=== PATIENT | female | born 1950 | race Caucasian/White ===

== ENCOUNTER 2019-11-19 16:30 | Emergency (ER) | payer MEDICARE, MEDICAID ==
--- NOTE | 2019-11-19 17:54 | EDM.PDOC ---
ED HPI GENERAL MEDICAL PROBLEM - General Chief Complaint: Lower Extremity Injury/Pain Stated Complaint: Hip and Groin Pain Time Seen by Provider: 11/19/19 16:38 Source of Information: Reports: Patient History Limitations: Reports: No Limitations - History of Present Illness INITIAL COMMENTS - FREE TEXT/NARRATIVE: Pt. presents to ER with complaints of lower back pain with radiation into L groin area. Pt. states that she has had issues with occasional low back without radicular symptoms in the past. She went to see a chiropractor who adjusted her back and SI joint 2 days ago which helped with some discomfort. She states this AM the discomfort was worse and radiating into her L groin and down her L buttock. Denies any saddle anesthesia or incontinence. No fever or chills. Onset: Today Location: Reports: Back, Upper Extremity, Left Quality: Reports: Burning, Stabbing Improves with: Reports: Rest Worsens with: Reports: Movement Associated Symptoms: Denies: Fever/Chills Review of Systems - Review of Systems Review Of Systems: See Below Constitutional: Reports: No Symptoms Ears: Reports: No Symptoms Nose: Reports: No Symptoms Mouth/Throat: Reports: No Symptoms Respiratory: Reports: No Symptoms Cardiovascular: Reports: No Symptoms GI/Abdominal: Reports: No Symptoms Genitourinary: Reports: No Symptoms Musculoskeletal: Reports: Back Pain Skin: Reports: No Symptoms Neurological: Reports: No Symptoms Psychiatric: Reports: No Symptoms ED EXAM, GENERAL - Physical Exam Exam: See Below Exam Limited By: No Limitations General Appearance: Alert, WD/WN, No Apparent Distress Throat/Mouth: Normal Inspection, Normal Lips, Normal Teeth, Normal Voice, No Airway Compromise Back Exam: Decreased Range of Motion, Muscle Spasm, Paraspinal Tenderness, Vertebral Tenderness, Other (severe muscle spasm. Decreased ROM with flexion, extension, lateral bending and rotation. ) Neurological: Alert, Oriented, CN II-XII Intact, No Motor/Sensory Deficits, Abnormal Reflexes (Reflexes +2 R, +1 L) Departure - Departure Time of Disposition: 18:42 Disposition: Home, Self-Care 01 Clinical Impression: Right-sided low back pain with left-sided sciatica - Discharge Information Instructions: Acetaminophen; Hydrocodone tablets or capsules, Cyclobenzaprine tablets, Acute Back Pain, Adult Referrals: Altagracia Ruiz [employer] [Primary Care Provider] - Additional Instructions: Flexeril 10mg 1 three times daily as needed for spasms [place] 5/325mg 1 every 4-6 hours as needed for pain Physical therapy will be in contact with you. Follow-up in clinic as needed. - Problem List Review Problem List Initiated/Reviewed/Updated: Yes
== END 2019-11-19 17:00 | disposition home or self-care (01) ==
LOC: VM.ED 16:30 → SUPCPDRO 16:30 → VM.ED 17:00
DX: M54.42 Lumbago with sciatica, left side (principal)
CPT/HCPCS: 99283

== ENCOUNTER 2019-11-25 14:50 | Emergency (ER) | payer MEDICARE, MEDICAID ==
[2019-11-25] MEDS: HYDROmorphone 0.5 MG/0.5 ML Syringe IV ONE (15:06)
[2019-11-25 15:35] LABS: CHLORIDE,CL 100 mmol/L (98-107); SODIUM,NA 136 mmol/L (136-145)
[2019-11-25 15:37] LABS: ANION GAP 13.8 mmol/L (10-20)
--- NOTE | 2019-11-25 15:42 | EDM.PDOC ---
ED HPI GENERAL MEDICAL PROBLEM - General Chief Complaint: Lower Extremity Injury/Pain Stated Complaint: left hip pain fall Time Seen by Provider: 11/25/19 15:00 Source of Information: Reports: Patient History Limitations: Reports: No Limitations - History of Present Illness INITIAL COMMENTS - FREE TEXT/NARRATIVE: Patient comes emergency department today from home by ambulance with complaints of left hip pain. This patient today was ambulating when suddenly she felt a "pop" in her left hip and then she fell to the ground. She had no symptoms of weakness dizziness lightheadedness palpitations prior to the fall. She clearly had some popping sensation her left hip and fell to the ground. In the last 2 weeks she has been seen in the emergency department as well as the clinic for left hip pain. Today when she fell she did not hit her head. She has no head neck or back pain. There was no loss of consciousness. She was given Zofran and fentanyl prior to arrival. NO COVID Symptoms no COVID exposure. Left Hip Pain Score (Numeric/FACES): 8 - Related Data Allergies Allergy/AdvReac Type Severity Reaction Status Date / Time chlorpromazine Allergy Anaphylactic Verified 11/25/19 15:10 [From Thorazine] Shock Home Meds: Home Meds ARIPiprazole [Abilify] 5 mg PO DAILY 11/25/19 [History] Albuterol Sulfate [Proair Respiclick] 2 puff IH Q6H PRN 11/25/19 [History] Albuterol [Proair HFA] 2 puff INH Q6HR PRN 11/25/19 [History] Escitalopram Oxalate [Lexapro] 20 mg PO DAILY 11/25/19 [History] Fluticasone/Umeclidin/Vilanter [Trelegy Ellipta 100-62.5-25] 1 puff IH DAILY 11/25/19 [History] Loratadine [Claritin] 10 mg PO DAILY 11/25/19 [History] Losartan [Cozaar] 50 mg PO DAILY 11/25/19 [History] QUEtiapine Fumarate [Seroquel] 200 mg PO BEDTIME 11/25/19 [History] hydroCHLOROthiazide [Hydrochlorothiazide] 12.5 mg PO DAILY 11/25/19 [History] Past Medical History Cardiovascular History: Reports: Hypertension Respiratory History: Reports: COPD Other Respiratory History: centrilobular emphysema Psychiatric History: Reports: Bipolar Social & Family History - Tobacco Use Smoking Status *Q: Current Every Day Smoker Years of Tobacco use: 40 Packs/Tins Daily: 0.5 Review of Systems - Review of Systems Review Of Systems: Comprehensive ROS is negative, except as noted in HPI. ED EXAM, GENERAL - Physical Exam Exam: See Below Exam Limited By: No Limitations General Appearance: Alert, WD/WN, No Apparent Distress Ears: Normal External Exam Nose: Normal Inspection Throat/Mouth: Normal Inspection Head: Atraumatic Neck: Normal Inspection Respiratory/Chest: No Respiratory Distress, Lungs Clear, Normal Breath Sounds, Chest Non-Tender Cardiovascular: Normal Peripheral Pulses, Regular Rate, Rhythm, No Murmur Peripheral Pulses: 2+: Radial (L), Radial (R), Posterior Tibial (L), Posterior Tibial (R), Dorsalis Pedis (L), Dorsalis Pedis (R) GI/Abdominal: Normal Bowel Sounds, Soft (Female) Exam: Deferred Rectal (Female) Exam: Deferred Back Exam: Normal Inspection, Full Range of Motion. No: CVA Tenderness (L), CVA Tenderness (R), Paraspinal Tenderness, Vertebral Tenderness Extremities: No: Normal Inspection (Left Lower extremity is shortened and externally rotated with tenderness to the left hip region. ) Neurological: Alert, Oriented, CN II-XII Intact, Normal Cognition, No Motor/Sensory Deficits Psychiatric: Normal Affect, Normal Mood Skin Exam: Warm, Dry, Intact, Normal Color, No Rash Course - Vital Signs Last Recorded V/S: Last Vital Signs Temp 97.9 F 11/25/19 14:50 Pulse 72 11/25/19 14:50 Resp 18 11/25/19 14:50 BP 112/71 11/25/19 14:50 Pulse Ox 94 L 11/25/19 14:50 - Orders/Labs/Meds Orders: Active Orders 24 hr Category Date Time Status Chest 1V Frontal [CR] Stat Exams 11/25/19 16:02 Ordered Labs: Laboratory Tests 11/25/19 11/25/19 11/25/19 Range/Units 15:10 15:10 15:10 WBC 7.5 (4.0-10.0) x10^3/uL RBC 3.99 L (4.00-5.50) x10^6/uL Hgb 11.5 L (12.0-16.0) g/dL Hct 34.1 (33.0-47.0) % MCV 85.5 (78.0-93.0) fL MCH 28.8 (26.0-32.0) pg MCHC 33.7 (32.0-36.0) g/dL RDW Coeff of Sally 13.1 (10.0-15.0) % Plt Count 301 (130-400) x10^3/uL Neut % (Auto) 61.0 (50.0-80.0) % Lymph % (Auto) 23.6 L (25.0-50.0) % [place] % (Auto) 10.9 (2.0-11.0) % Eos % (Auto) 4.1 H (0.0-4.0) % Baso % (Auto) 0.4 (0.2-1.2) % PT 10.2 (9.5-12.3) SEC INR 0.9 L (2.0-3.5) APTT 43.2 H (25.6-32.8) SEC Sodium 136 (136-145) mmol/L Potassium 3.8 (3.5-5.1) mmol/L Chloride 100 (98-107) mmol/L Carbon Dioxide 26 (21-32) mmol/L Anion Gap 13.8 (10-20) mmol/L BUN 40 H (7-18) mg/dL Creatinine 1.4 H (0.55-1.02) mg/dL Est Cr Clr Drug Dosing TNP Estimated GFR (MDRD) 37 Glucose 105 (74-106) mg/dL Calcium 8.9 (8.5-10.1) mg/dL Corrected Calcium 9.22 (8.5-10.1) mg/dL Total Bilirubin 0.6 (0.2-1.0) mg/dL AST 14 L (15-37) U/L ALT 18 (14-59) U/L Alkaline Phosphatase 65 (46-116) U/L Total Protein 7.5 (6.4-8.2) g/dL Albumin 3.6 (3.4-5.0) g/dL Globulin 3.9 Albumin/Globulin Ratio 0.92 Meds: Medications Discontinued Medications Generic Name Dose Route Start Last Admin Trade Name Freq PRN Reason Stop Dose Admin Hydromorphone HCl 0.5 mg 11/25/19 15:00 11/25/19 15:06 Dilaudid IV 11/25/19 15:01 0.5 mg ONETIME ONE Administration Ondansetron HCl 4 mg 11/25/19 15:00 Zofran IV 11/25/19 15:01 ONETIME ONE - Radiology Interpretation Free Text/Narrative:: X-ray of the left hip and pelvis per radiology shows an acute angulated impacted left femoral neck fracture. Femoral head remains in articulation with the acetabulum. Fractures of the right pubic rami chronic in appearance. Possible fracture of the left inferior pubic ramus age-indeterminate. - Re-Assessments/Exams Free Text/Narrative Re-Assessment/Exam: 11/25/19 15:53 Pt did receive ZOfran and Fentanyl waitstaff captain. Dilaudid 0.5mg IVP Xray of the left hip reviewed extemporaneously by myself shows a complete femoral neck fracture. Old right pubic rami fracture.. No dislocation or subluxation and some minimal retraction and impaction of the femoral neck fracture. Radiological review to follow. 11/25/19 16:04 I called and spoke with DR. Castro at [facility] in [place]. HPI ER COURSE findings and concerns were relayed to her. She accepted the patient in transfer at this time to [facility]. I discussed the plan of care with the patient. She is comfortable with this plan and her questions answered. Departure - Departure Time of Disposition: 15:36 Disposition: DC/Tfer to Acute Hospital 02 Clinical Impression: Displaced fracture of left femoral neck - Discharge Information Forms: ED Department Discharge, Interfacility Transfer LUIS Sepsis Event Note (ED) - Evaluation Sepsis Screening Result: No Definite Risk - Focused Exam Vital Signs: Vital Signs Temp Pulse Resp BP Pulse Ox 11/25/19 14:50 97.9 F 72 18 112/71 94 L - My Orders Last 24 Hours: My Active Orders 11/25/19 16:02 Chest 1V Frontal [CR] Stat - Assessment/Plan Last 24 Hours: My Active Orders 11/25/19 16:02 Chest 1V Frontal [CR] Stat Assessment:: Acute left femoral angulated and impacted neck fracture. ? left inferior pubic ramus fracture. Chronic appearing right pubic rami fracture. Plan: Transfer to [facility] for further care management and treatment.
[2019-11-25 15:44] LABS: PTT,PARTIAL THROMBOPLSTIN TIME 43.2 SEC (25.6-32.8)
--- NOTE | 2019-11-25 15:56 | CR ---
[id number] RAD/RAD Pelvis 1V W 2V Left Hip Exam: RAD Pelvis 1V W 2V Left Hip Indication:FALL, LEFT HIP PAIN, SHORTENED AND ROTATED. Comparison: No prior imaging for comparison. Discussion/Impression: Acute angulated and impacted left femoral neck fracture. Femoral head remains in articulation with the acetabulum. Fractures of the right pubic rami, chronic in appearance. However, no prior examination available for comparison. Possible fracture of the left inferior pubic ramus, age indeterminate. Correlation with any prior imaging would be of benefit if available. Trever Flores MD 11/25/19 [id number] Thank you for allowing us to participate in the care of your patient.
--- NOTE | 2019-11-25 16:27 | CR ---
[id number] RAD/RAD Chest PA or AP 1V EXAM: FRONTAL CHEST INDICATION: HIP FRACTURE. COMPARISON: None. DISCUSSION: Borderline heart size with mild central vascular congestion. No focal infiltrates. Chronic appearing right fifth and sixth rib fractures. IMPRESSION: 1. Cardiomegaly with borderline central vascular congestion. Nathan Velasquez MD 11/25/19 [id number] Thank you for allowing us to participate in the care of your patient.
[2019-11-25] MEDS: Ondansetron 4 MG/2 ML SDV IV ONE (18:33)
== END 2019-11-25 17:35 | disposition short-term general hospital (02) ==
LOC: VM.ED 14:50
DX: S72.002A Fracture of unspecified part of neck of left femur, initial encounter for closed fracture (principal); I10 Essential (primary) hypertension; J44.9 Chronic obstructive pulmonary disease, unspecified; F31.9 Bipolar disorder, unspecified; F17.210 Nicotine dependence, cigarettes, uncomplicated; Z88.8 Allergy status to other drugs, medicaments and biological substances; W17.89XA Other fall from one level to another, initial encounter
CPT/HCPCS: 36415; 71045; 80053; 85025; 85610; 85730; 94760; 96374; 99284; 99285-25; J1170

== ENCOUNTER 2019-12-01 14:02 | Inpatient (IN) | payer MEDICARE, MEDICAID ==
[2019-12-01] MEDS ORDERED: Albuterol/Ipratropium 3.0-0.5 MG/3 ML Neb Soln NEB PRN (17:24)
[2019-12-01] MEDS ORDERED: FLU Vacc QV2020-21(65YR UP)/PF 240 MCG/0.7 ML Syringe IM ONE (17:45)
--- NOTE | 2019-12-01 18:34 | CR ---
[id number] RAD/RAD Chest PA or AP 1V EXAM: RAD Chest PA or AP 1V INDICATION: SHORTNESS OF BREATH, WHEEZING. COMPARISON: November 25, 2019. DISCUSSION: Cardiomediastinal silhouette is normal in size and contour. Pulmonary hyperinflation. Bibasilar subsegmental atelectasis and/or scarring. Developing pulmonary infiltrates are not excluded. No pneumothorax or pleural effusion. IMPRESSION: Bibasilar subsegmental atelectasis and/or scarring. Developing pulmonary infiltrates are not excluded. Pawel Melton DO 12/01/19 1833 Thank you for allowing us to participate in the care of your patient.
[2019-12-01] MEDS: QUEtiapine 100 MG Tab PO SCH (19:37)
[2019-12-01] MEDS: Pantoprazole 40 MG Tab.CR PO SCH (19:37)
--- NOTE | 2019-12-02 00:44 | HP ---
CHIEF COMPLAINT: 1. Left hip fracture. 2. Weakness. 3. Deconditioning. HISTORY OF PRESENT ILLNESS: A 69-year-old female patient with past medical history of bipolar affective disorder, COPD, hypertension, tobacco use disorder, was admitted to the [facility] in [place] on 11/25/2019 after she sustained a left hip fracture. The patient was seen in the emergency room at [facility] on the after she had fallen at home. The patient states that she was merely walking out of her bathroom door when "my hip popped and gave out." The patient states EMS was called, who then brought her to the emergency room. In the emergency room, the x-ray showed an acute angulated displaced left femoral neck fracture. The x-ray also showed an old left ramus fracture. The patient was stabilized and sent to [place]. On 11/26/2019, the patient underwent a left hip hemiarthroplasty. The patient's surgery was uneventful. Postoperatively, the patient did develop anemia. The patient's admitting hemoglobin was 11.8 and had dropped to 7.8 yesterday. The patient was transfused 1 unit of blood. The patient's repeat hemoglobin today was 8.6. The patient was also found to have iron deficiency anemia. The patient had a low folate and iron level. The patient was started on folate daily. Upon my interview today, the patient appears to be comfortable, yet somewhat short of breath. The patient has audible wheezing. The patient states this is normal for her. The patient smokes 1 to 2 packs of cigarettes per day. The patient has been smoking over the past 40 years. The patient denies any chest pain or palpitations. The patient does not have any abdominal pain. She denies any nausea or vomiting. No diarrhea. The patient denies any headaches. The patient does not have any dizziness or lightheadedness. The patient does have a wet productive cough. The patient does complain of some discomfort of the left hip, which radiates to the left thigh. PAST MEDICAL HISTORY: 1. Female stress incontinence. 2. Essential hypertension. 3. Drug dependence, in remission. 4. Depressive disorder. 5. Chronic pain. 6. COPD, severe. 7. History of alcohol abuse. 8. Psychotic disorder. PAST SURGICAL HISTORY: Left hip hemiarthroplasty, 11/26/2019. FAMILY HISTORY: Noncontributory. SOCIAL HISTORY: The patient does smoke cigarettes on a daily basis. The patient denies any current alcohol use. The patient denies any illegal drug use. The patient does live alone in her own apartment. ALLERGIES: Thorazine, which causes anaphylaxis and a rash. MEDICATIONS: 1. DuoNeb 3 mL via nebulizer every 4 hours as needed. 2. Aspirin 81 mg 1 tablet p.o. daily. 3. Citalopram 40 mg 1 tablet p.o. daily. 4. Cyclobenzaprine 10 mg 1 tablet p.o. 3 times daily as needed. 5. Docusate sodium 100 mg p.o. twice daily as needed. 6. Senna Plus 1 tablet p.o. twice daily as needed. 7. Enoxaparin 40 mg subcu daily. 8. Fluticasone/salmeterol inhalation daily. 9. Folic acid 1 mg p.o. daily. 10.Glycopyrrolate 15.6 mcg inhalation twice daily. 11.Losartan 25 mg 1 tablet p.o. daily. 12.Habitrol 7 mg transdermal daily. 13.Oxycodone 5 mg 1 tablet p.o. every 4 hours as needed. 14.Pantoprazole 40 mg 1 tablet p.o. daily at bedtime. 15.MiraLAX 17 g p.o. daily. 16.Quetiapine 200 mg 1 tablet p.o. daily at bedtime. REVIEW OF SYSTEMS: Constitutional: Negative. Respiratory: Chronic shortness of breath. Cardiovascular: Negative. Abdomen: Negative. Musculoskeletal: Left hip pain, especially with movement. Skin: Negative. Neurological: Negative. PHYSICAL EXAMINATION: Vital Signs: Height 5 feet 4 inches, weight 177 pounds. Temperature 98.6, pulse 58, blood pressure 125/64, respiratory rate 24, oxygen saturation 91% on room air. General: The patient does not appear to be in any acute distress. The patient is cooperative. The patient is alert. Skin/Wound: Left anterior hip reveals intact dressing with no drainage. There is hematoma formation circumferentially of the upper left thigh. This area is tender to palpation. Rest of the skin exam is unremarkable. Respiratory: Audible wheezing, productive cough, bibasilar rhonchi. Cardiovascular: Regular rate and rhythm. No murmur. Abdomen: Soft, nontender. Bowel sounds hypoactive x4. Musculoskeletal: Left hip tender to palpation secondary to recent surgery. Dressing is intact. CMS is intact of the left lower extremity. Neurologic: The patient is alert. The patient is oriented x3. No focal neurological deficits. ASSESSMENT: 1. Left femoral neck fracture. 2. Weakness. 3. Deconditioning. 4. Status post left hip hemiarthroplasty. 5. Severe chronic obstructive pulmonary disease. 6. Acute blood loss as cause of postoperative anemia. 7. Iron deficiency anemia. 8. Folate deficiency. 9. Bipolar affective disorder, currently depressed, moderate. 10.Bipolar 1 disorder. 11.Essential hypertension. 12.Tobacco use disorder. 13.Old left pubic rami fracture. PLAN: 1. Admit to swing bed, [facility]. 2. Consult PT/OT. 3. Consult Respiratory Therapy. 4. Recheck CBC, CMP, ferritin level in the a.m. 5. Continue with home medications. 6. We will check a chest x-ray given the patient's wheezing and rhonchi, suspect possible infiltrates. If the patient has infiltrates and develops any clinical signs of pneumonia, will treat appropriately. 7. May consider increasing nicotine patch to 21 mg daily, depending upon how the patient does. 8. Continue with Lovenox until 12/21. 9. The patient will need a followup with Orthopedic Surgery in 2 weeks. 10.Heart healthy diet, up for all meals. 11.Cough and deep breathe every 2 to 4 hours. 12.Continue with oxycodone 5 mg every 4 hours as needed for pain control. The patient states this has been adequate. 13.I anticipate an admission of 7 to 10 days, depending upon how the patient does. 14.The patient will receive flu vaccination today. This patient was seen and examined by me as an [facility] provider. The patient was staffed with Dr. Ayleen Mcclure on date of admission. TB: 12/01/2019 20:32:30 MODL: 12/02/2019 00:34:40 /[id number] JAZZMINE
[2019-12-02] MEDS: oxyCODONE 5 MG Tab PO PRN ×3 (01:46→19:57)
[2019-12-02] MEDS: Polyethylene Glycol 3350 Powder 17 GM Packet PO SCH (07:49)
[2019-12-02] MEDS: Nicotine 7 MG/24 Hr Patch TOP SCH (07:51)
[2019-12-02] MEDS: Fluticasone-Salmeterol 113-14 MCG Powder Inhalant INH SCH (07:53)
[2019-12-02] MEDS: Enoxaparin 40 MG/0.4 ML Syringe SUBCUT SCH (07:53)
[2019-12-02] MEDS: Glycopyrrolate 15.6 MCG Cap.W.Dev Kit of 6 IH SCH ×2 (07:54→19:56)
[2019-12-02] MEDS: Citalopram 20 MG Tab PO SCH (07:55)
[2019-12-02] MEDS: Aspirin 81 MG Tab.Chew PO SCH (07:55)
[2019-12-02] MEDS: Cyclobenzaprine 10 MG Tab PO PRN (07:55)
[2019-12-02] MEDS: Losartan 50 MG Tab PO SCH (07:55)
[2019-12-02] MEDS: Folic Acid 1 MG Tab PO SCH (07:55)
--- NOTE | 2019-12-02 09:13 | PCM.SN.2 ---
- Free Text/Narrative Note: Labs reviewed this AM. HgB stable. Ferritin normal. Will continue to monitor left thigh hematoma. Suspect this will improve since HgB is remaining stable.
[2019-12-02] MEDS ORDERED: Pneumococcal 23-Valent Conjugate Vaccine 0.5 ML Syringe IM ONE (12:14)
[2019-12-02] MEDS ORDERED: FLU Vacc QV2020-21(65YR UP)/PF 240 MCG/0.7 ML Syringe IM ONE ×2 (12:15→12:45)
[2019-12-02] MEDS: QUEtiapine 100 MG Tab PO SCH (19:55)
[2019-12-02] MEDS: Pantoprazole 40 MG Tab.CR PO SCH (19:56)
[2019-12-03] MEDS: Nicotine 7 MG/24 Hr Patch TOP SCH (08:12)
[2019-12-03] MEDS: Cyclobenzaprine 10 MG Tab PO PRN ×2 (08:13→20:10)
[2019-12-03] MEDS: Aspirin 81 MG Tab.Chew PO SCH (08:13)
[2019-12-03] MEDS: Enoxaparin 40 MG/0.4 ML Syringe SUBCUT SCH (08:14)
[2019-12-03] MEDS: Fluticasone-Salmeterol 113-14 MCG Powder Inhalant INH SCH (08:14)
[2019-12-03] MEDS: Losartan 50 MG Tab PO SCH (08:14)
[2019-12-03] MEDS: Glycopyrrolate 15.6 MCG Cap.W.Dev Kit of 6 IH SCH ×2 (08:14→20:09)
[2019-12-03] MEDS: Citalopram 20 MG Tab PO SCH (08:20)
[2019-12-03] MEDS: oxyCODONE 5 MG Tab PO PRN ×3 (08:20→22:29)
[2019-12-03] MEDS: Polyethylene Glycol 3350 Powder 17 GM Packet PO SCH (08:21)
[2019-12-03] MEDS: Folic Acid 1 MG Tab PO SCH (08:21)
--- NOTE | 2019-12-03 13:02 | PCM.SN.2 ---
- Free Text/Narrative Note: Patient seen and examined today. Will increased Habitrol to 14 mg TD patch daily. However, the patient has been without nicotine for a considerable amount of time, so 7 mg dose would certainly be appropriate. Patient states she is not anxious nor feels like she needs to smoke or has cravings. Pain reassessed. Discussed with patient the need for PT and getting her back home. Will increase Oxycodone to 10 mg, but please keep in mind an opioid naive patient, advanced age, CrCl, and safety before pain. If patient does not meet goals with PT in a reasonable amount of time, consider SCC
[2019-12-03] MEDS: Nicotine 14 MG/24 Hr Patch TRDERM SCH (14:22)
[2019-12-03] MEDS: QUEtiapine 100 MG Tab PO SCH (20:09)
[2019-12-03] MEDS: Pantoprazole 40 MG Tab.CR PO SCH (20:10)
[2019-12-04] MEDS: oxyCODONE 5 MG Tab PO PRN ×2 (05:51→16:39)
[2019-12-04] MEDS: Polyethylene Glycol 3350 Powder 17 GM Packet PO SCH (09:05)
[2019-12-04] MEDS: Nicotine 14 MG/24 Hr Patch TRDERM SCH (09:06)
[2019-12-04] MEDS: Enoxaparin 40 MG/0.4 ML Syringe SUBCUT SCH (09:09)
[2019-12-04] MEDS: Cyclobenzaprine 10 MG Tab PO PRN ×2 (09:10→19:55)
[2019-12-04] MEDS: Losartan 50 MG Tab PO SCH (09:10)
[2019-12-04] MEDS: BREO ELLIPTA 100-25 MCG INH SCH (09:10)
[2019-12-04] MEDS: Citalopram 20 MG Tab PO SCH (09:10)
[2019-12-04] MEDS: Folic Acid 1 MG Tab PO SCH (09:10)
[2019-12-04] MEDS: Aspirin 81 MG Tab.Chew PO SCH (09:10)
[2019-12-04] MEDS: Glycopyrrolate 15.6 MCG Cap.W.Dev Kit of 6 IH SCH ×2 (09:11→19:54)
[2019-12-04] MEDS: QUEtiapine 100 MG Tab PO SCH (19:54)
[2019-12-04] MEDS: Pantoprazole 40 MG Tab.CR PO SCH (19:55)
[2019-12-05] MEDS: oxyCODONE 5 MG Tab PO PRN ×3 (00:56→17:49)
[2019-12-05] MEDS: Polyethylene Glycol 3350 Powder 17 GM Packet PO SCH (08:05)
[2019-12-05] MEDS: Nicotine 14 MG/24 Hr Patch TRDERM SCH (08:07)
[2019-12-05] MEDS: Enoxaparin 40 MG/0.4 ML Syringe SUBCUT SCH (08:08)
[2019-12-05] MEDS: Cyclobenzaprine 10 MG Tab PO PRN ×2 (08:09→17:50)
[2019-12-05] MEDS: BREO ELLIPTA 100-25 MCG INH SCH (08:09)
[2019-12-05] MEDS: Aspirin 81 MG Tab.Chew PO SCH (08:10)
[2019-12-05] MEDS: Citalopram 20 MG Tab PO SCH (08:10)
[2019-12-05] MEDS: Folic Acid 1 MG Tab PO SCH (08:10)
[2019-12-05] MEDS: Glycopyrrolate 15.6 MCG Cap.W.Dev Kit of 6 IH SCH ×2 (08:16→19:38)
[2019-12-05] MEDS: Losartan 50 MG Tab PO SCH (08:16)
[2019-12-05] MEDS: QUEtiapine 100 MG Tab PO SCH (19:39)
[2019-12-05] MEDS: Pantoprazole 40 MG Tab.CR PO SCH (19:40)
[2019-12-06] MEDS: oxyCODONE 5 MG Tab PO PRN ×3 (02:03→19:30)
[2019-12-06] MEDS: Glycopyrrolate 15.6 MCG Cap.W.Dev Kit of 6 IH SCH ×2 (08:11→19:32)
[2019-12-06] MEDS: Polyethylene Glycol 3350 Powder 17 GM Packet PO SCH (08:11)
[2019-12-06] MEDS: BREO ELLIPTA 100-25 MCG INH SCH (08:11)
[2019-12-06] MEDS: Enoxaparin 40 MG/0.4 ML Syringe SUBCUT SCH (08:12)
[2019-12-06] MEDS: Nicotine 14 MG/24 Hr Patch TRDERM SCH (08:12)
[2019-12-06] MEDS: Folic Acid 1 MG Tab PO SCH (08:14)
[2019-12-06] MEDS: Cyclobenzaprine 10 MG Tab PO PRN (08:14)
[2019-12-06] MEDS: Citalopram 20 MG Tab PO SCH (08:14)
[2019-12-06] MEDS: Losartan 50 MG Tab PO SCH (08:17)
[2019-12-06] MEDS: Aspirin 81 MG Tab.Chew PO SCH (08:18)
[2019-12-06] MEDS: Docusate Sodium 100 MG Cap PO PRN ×2 (08:23→19:32)
[2019-12-06] MEDS: Pantoprazole 40 MG Tab.CR PO SCH (19:32)
[2019-12-06] MEDS: QUEtiapine 100 MG Tab PO SCH (19:32)
[2019-12-07] MEDS ORDERED: Bisacodyl 10 MG Supp RECTAL PRN (07:33)
[2019-12-07] MEDS: Polyethylene Glycol 3350 Powder 17 GM Packet PO SCH (08:27)
[2019-12-07] MEDS: Aspirin 81 MG Tab.Chew PO SCH (08:27)
[2019-12-07] MEDS: Enoxaparin 40 MG/0.4 ML Syringe SUBCUT SCH (08:27)
[2019-12-07] MEDS: Folic Acid 1 MG Tab PO SCH (08:27)
[2019-12-07] MEDS: Cyclobenzaprine 10 MG Tab PO PRN ×2 (08:27→18:50)
[2019-12-07] MEDS: Losartan 50 MG Tab PO SCH (08:27)
[2019-12-07] MEDS: Citalopram 20 MG Tab PO SCH (08:27)
[2019-12-07] MEDS: Nicotine 14 MG/24 Hr Patch TRDERM SCH (08:27)
[2019-12-07] MEDS: BREO ELLIPTA 100-25 MCG INH SCH (08:28)
[2019-12-07] MEDS: Glycopyrrolate 15.6 MCG Cap.W.Dev Kit of 6 IH SCH ×2 (08:28→20:20)
[2019-12-07] MEDS ORDERED: Magnesium Citrate Solution 296 ML Bottle PO ONE (18:07)
[2019-12-07] MEDS: Pantoprazole 40 MG Tab.CR PO SCH (20:19)
[2019-12-07] MEDS: QUEtiapine 100 MG Tab PO SCH (20:19)
[2019-12-07] MEDS: oxyCODONE 5 MG Tab PO PRN (20:21)
[2019-12-08] MEDS: Enoxaparin 40 MG/0.4 ML Syringe SUBCUT SCH (08:21)
[2019-12-08] MEDS: BREO ELLIPTA 100-25 MCG INH SCH (08:22)
[2019-12-08] MEDS: Cyclobenzaprine 10 MG Tab PO PRN (08:23)
[2019-12-08] MEDS: Polyethylene Glycol 3350 Powder 17 GM Packet PO SCH (08:23)
[2019-12-08] MEDS: Citalopram 20 MG Tab PO SCH (08:23)
[2019-12-08] MEDS: Nicotine 14 MG/24 Hr Patch TRDERM SCH (08:27)
[2019-12-08] MEDS: Aspirin 81 MG Tab.Chew PO SCH (08:27)
[2019-12-08] MEDS: Losartan 50 MG Tab PO SCH (08:27)
[2019-12-08] MEDS: Folic Acid 1 MG Tab PO SCH (08:27)
[2019-12-08] MEDS: Glycopyrrolate 15.6 MCG Cap.W.Dev Kit of 6 IH SCH ×2 (08:28→20:34)
--- NOTE | 2019-12-08 12:46 | PCM.SN.2 ---
- Free Text/Narrative Note: Touched base with nursing staff today regarding upcoming discharge on December 11, 2019 with Home Health. Patient overall doing better. Reminder to patient she will not be going home one any strong pain medication given her addiction history and high risk for falls. Will reassess on day of discharge.
--- NOTE | 2019-12-08 12:53 | PCM.SN.2 ---
- Free Text/Narrative Note: Will discontinue Cozaar for now due to hypotension. Will reassess need for antihypertensive on day of discharge.
[2019-12-08] MEDS: oxyCODONE 5 MG Tab PO PRN (13:36)
[2019-12-08] MEDS: QUEtiapine 100 MG Tab PO SCH (20:24)
[2019-12-08] MEDS: Pantoprazole 40 MG Tab.CR PO SCH (20:24)
[2019-12-09] MEDS: oxyCODONE 5 MG Tab PO PRN ×3 (05:16→22:16)
[2019-12-09] MEDS: BREO ELLIPTA 100-25 MCG INH SCH (08:48)
[2019-12-09] MEDS: Glycopyrrolate 15.6 MCG Cap.W.Dev Kit of 6 IH SCH ×2 (08:48→19:45)
[2019-12-09] MEDS: Polyethylene Glycol 3350 Powder 17 GM Packet PO SCH (08:49)
[2019-12-09] MEDS: Nicotine 14 MG/24 Hr Patch TRDERM SCH (08:50)
[2019-12-09] MEDS: Enoxaparin 40 MG/0.4 ML Syringe SUBCUT SCH (08:51)
[2019-12-09] MEDS: Citalopram 20 MG Tab PO SCH (08:52)
[2019-12-09] MEDS: Cyclobenzaprine 10 MG Tab PO PRN ×2 (08:52→22:16)
[2019-12-09] MEDS: Aspirin 81 MG Tab.Chew PO SCH (08:53)
[2019-12-09] MEDS: Folic Acid 1 MG Tab PO SCH (08:53)
[2019-12-09] MEDS: QUEtiapine 100 MG Tab PO SCH (19:43)
[2019-12-09] MEDS: Pantoprazole 40 MG Tab.CR PO SCH (19:43)
[2019-12-10] MEDS: Nicotine 14 MG/24 Hr Patch TRDERM SCH (07:59)
[2019-12-10] MEDS: Polyethylene Glycol 3350 Powder 17 GM Packet PO SCH (07:59)
[2019-12-10] MEDS: Enoxaparin 40 MG/0.4 ML Syringe SUBCUT SCH (07:59)
[2019-12-10] MEDS: Citalopram 20 MG Tab PO SCH (08:01)
[2019-12-10] MEDS: Glycopyrrolate 15.6 MCG Cap.W.Dev Kit of 6 IH SCH ×2 (08:01→20:13)
[2019-12-10] MEDS: BREO ELLIPTA 100-25 MCG INH SCH (08:01)
[2019-12-10] MEDS: Cyclobenzaprine 10 MG Tab PO PRN ×3 (08:02→20:17)
[2019-12-10] MEDS: Folic Acid 1 MG Tab PO SCH (08:02)
[2019-12-10] MEDS: Aspirin 81 MG Tab.Chew PO SCH (08:02)
[2019-12-10] MEDS ORDERED: Magnesium Citrate Solution 296 ML Bottle PO ONE (12:47)
[2019-12-10] MEDS: oxyCODONE 5 MG Tab PO PRN ×2 (14:02→20:17)
[2019-12-10] MEDS: Pantoprazole 40 MG Tab.CR PO SCH (20:13)
[2019-12-10] MEDS: QUEtiapine 100 MG Tab PO SCH (20:13)
[2019-12-11 06:34] VITALS: BP 97/68; PULSE 60
[2019-12-11] MEDS: oxyCODONE 5 MG Tab PO PRN ×2 (06:43→11:13)
[2019-12-11] MEDS: Enoxaparin 40 MG/0.4 ML Syringe SUBCUT SCH (09:12)
[2019-12-11] MEDS: Polyethylene Glycol 3350 Powder 17 GM Packet PO SCH (09:12)
[2019-12-11] MEDS: Folic Acid 1 MG Tab PO SCH (09:13)
[2019-12-11] MEDS: Nicotine 14 MG/24 Hr Patch TRDERM SCH (09:13)
[2019-12-11] MEDS: Aspirin 81 MG Tab.Chew PO SCH (09:13)
[2019-12-11] MEDS: Citalopram 20 MG Tab PO SCH (09:13)
[2019-12-11] MEDS: BREO ELLIPTA 100-25 MCG INH SCH (09:17)
[2019-12-11] MEDS: Glycopyrrolate 15.6 MCG Cap.W.Dev Kit of 6 IH SCH (09:17)
[2019-12-11] MEDS: Cyclobenzaprine 10 MG Tab PO PRN (09:21)
--- NOTE | 2019-12-11 11:19 | DISCH ---
CHIEF COMPLAINT: 1. Left hip fracture. 2. Weakness. 3. Deconditioning. HISTORY OF PRESENT ILLNESS: A 69-year-old female patient with past medical history of bipolar affective disorder, COPD, hypertension, tobacco use disorder, was admitted originally to [facility] in [place] on 11/25/2019 after she sustained a left hip fracture. The patient underwent a left hip hemiarthroplasty on 11/26/2019. The surgery was uneventful. The patient did develop some postoperative anemia in which she received 1 unit of blood. The patient was then stabilized and transferred to [facility] on 12/01/2019. During the patient's swing bed stay, her pain was well controlled with oxycodone 10 mg as needed. The patient did have problems with constipation, therefore she was given 2 different doses of mag citrate. The patient otherwise remained hemodynamically stable. The patient's incision remained clean, dry, and intact. No evidence of any infection. No wound dehiscence. The patient did work with Therapy to a progress to discharge. The patient did not have any problems with urination. The patient was able to have regular bowel movements at the time of discharge. They patient has a low hemoglobin on the date of discharge from acute care. This was stable at the time of her swing bed discharge. DISPOSITION: The patient will be discharged home with home health for senior care and physical therapy. CONSULTATIONS: Physical and Occupational Therapy. DIET: Heart healthy. REVIEW OF SYSTEMS: Constitutional: Negative. Skin: Negative. Respiratory: Negative. Cardiovascular: Negative. Musculoskeletal: Pain of the left hip, otherwise negative. Neurological: Negative. DISCHARGE PHYSICAL EXAMINATION: Vital Signs: Blood pressure 97/68, temperature 97.7, pulse 60, respirations 17, oxygen saturation 90% on room air. Height 5 feet 4 inches, weight 173 pounds. Skin: Intact, warm, and dry. Incision site is 29 cm long with 26 gerard that are all intact. No wound dehiscence. No evidence of infection. Area slightly tender. Respiratory: Lungs are diminished throughout, otherwise clear. Cardiovascular: Regular rate and rhythm. No murmur. Abdomen: Bowel sounds are hypoactive x4. Nontender. Neurological: The patient is alert. The patient is cooperative. No focal neurological deficits. General: The patient is in no acute distress. Musculoskeletal: Mild pain with movement of the left hip, otherwise normal. DISCHARGE IMAGING STUDIES: None. DISCHARGE LABORATORY WORK: Pending. DISCHARGE MEDICATIONS: 1. Aspirin 81 mg 1 tablet p.o. daily. 2. Lexapro 20 mg 1 tablet p.o. daily. 3. Cyclobenzaprine 10 mg 1 tablet p.o. 3 times daily as needed. 4. Colace 100 mg 1 tablet p.o. twice daily as needed. 5. Senna Plus 1 tablet p.o. twice daily as needed. 6. Lovenox 40 mg subcu daily; last dose 12/22/2019. 7. Folic acid 1 mg p.o. daily. 8. Glycopyrrolate 15.6 mcg via inhalation twice daily. 9. Habitrol 21 mg transdermal patch every 24 hours. 10.Oxycodone 5 mg 1 tablet p.o. every 6 hours as needed. 11.Protonix 40 mg 1 tablet p.o. daily at bedtime. 12.MiraLAX 17 g 1 tablet p.o. daily. 13.Seroquel 200 mg 1 tablet p.o. daily at bedtime. ASSESSMENT: 1. Left femoral neck fracture. 2. Weakness. 3. Deconditioning. 4. Status post left hip hemiarthroplasty. 5. Severe chronic obstructive pulmonary disease. 6. Acute blood loss as cause of postoperative anemia, resolved. 7. Iron deficiency anemia. 8. Folate deficiency. 9. Bipolar affective disorder, currently depressed, moderate. 10.Bipolar 1 disorder. 11.Essential hypertension. 12.Tobacco use disorder. 13.Old left pubic rami fracture. PLAN: The patient will be discharged home today with home health. We will leave the patient off blood pressure medications and recheck next week in clinic. Medications as above. Will be weightbearing as tolerated. Continue on Habitrol patches for smoking cessation. The patient will follow up with Altagracia Guevara NP, this coming Saturday for hospital followup. We will decrease the patient's oxycodone to 5 mg every 6 hours as needed for patient safety. [id number] ENCOUNTER DOCUMENTATION: Date of encounter: 12/11/2019. Patient name: Elma Harding. Date of : 1950. I certify that Elma Harding is under my care and that I had a [id number] encounter that needs a [id number] requirement on 12/11/2019. This date must match the discharge summary, progress note/clinic visit documentation, supporting this information. The encounter with the patient was in full or in part for the following medical conditions, which is the primary reason for home healthcare; left hip fracture, status post left hip fracture repair, weakness, deconditioning, and decrease in ADLs. My clinical findings support the need for the services because of inability to safely get to outpatient facility for therapy due to fall risk, lack of muscle coordination and tone, shortness of breath with or without activity (walking greater than 20 feet; talking, completing ADLs), and prolonged weakness. Further, I certify that my clinical findings support that this patient is homebound (i.e. absences from home require considerable and taxing effort, or are for medical reasons, or for voodoo services, or infrequent, or of short duration when some other reasons) because the patient is unable to safely ambulate distances less than 20 feet. The patient experiences shortness of breath at rest and/or with daily activities. The patient requires frequent rest periods due to prolonged weakness and endurance. The patient experiences shortness of breath at rest and/or with daily activities. The patient requires frequent rest due to prolonged weakness and endurance. The patient requires use of assistive device and/or use of wall/furniture to ambulate (by fall risk) and the patient requires assistance of another person to leave the home. Certification: For home health services. I certify that Elma Harding meets the homebound requirements for the peer source and has the need for intermittent senior care, physical therapy, and/or speech, or occupational therapy services and home for the diagnosis currently outlined in the initial plan of care. These services will continue to be monitored by Altagracia Ruiz NP. Altagracia Ruiz NP, will periodically review and update the plan of care as required. My signature indicates that this supplemental documentation has been incorporated in the patient's medical record. This patient was seen and examined by me as an [facility] provider. TB: 12/11/2019 08:47:28 MODL: 12/11/2019 11:11:50 /[id number] JAZZMINE
== END 2019-12-11 11:15 | disposition home health service (06) | DRG 561 ==
LOC: VM.MS 16:18
PROVIDERS: ADMIT Nurse Practitioner Family; ATTEND Nurse Practitioner Family
DX: Z47.1 Aftercare following joint replacement surgery (principal); Z96.642 Presence of left artificial hip joint; R53.1 Weakness; D50.9 Iron deficiency anemia, unspecified; J44.9 Chronic obstructive pulmonary disease, unspecified; F31.9 Bipolar disorder, unspecified; I10 Essential (primary) hypertension; F17.210 Nicotine dependence, cigarettes, uncomplicated; G89.29 Other chronic pain; I95.9 Hypotension, unspecified; Z79.82 Long term (current) use of aspirin; Z79.899 Other long term (current) drug therapy
CPT/HCPCS: 36415; 71045; 80053; 82728; 85025; 90662; 97110-GP; 97116-GP; 97161-GP; 97165-GO; 97530-GP; 97535-GO; A9270-GY; G0008; J1650